=== PATIENT | female | born 1945 | race Caucasian/White ===

== ENCOUNTER 2019-06-05 15:12 | Emergency (ER) | payer MEDICARE ==
[~2019-06-05] VITALS: Ht 152.4 cm; Wt 81.8 kg
[2019-06-05 15:50] VITALS: Ht 152.4 cm; Wt 81.8 kg
[2019-06-05] MEDS ORDERED: GLUCOPHAGE500 MG PO (15:54)
[2019-06-05] MEDS ORDERED: TOPROL XL50 MG PO (15:54)
[2019-06-05] MEDS ORDERED: VERAPAMIL ER P200 MG PO (15:54)
[2019-06-05] MEDS ORDERED: LIPITOR20 MG PO (15:55)
[2019-06-05] MEDS ORDERED: DIOVAN320 MG PO (15:55)
[2019-06-05] MEDS ORDERED: DEBROX OTIC15 ML EACH EAR (17:21)
[2019-06-05 18:00] VITALS: BP 168/70
== END 2019-06-05 18:00 | disposition home or self-care (01) ==
LOC: D.ER 15:12
DX: H61.21 Impacted cerumen, right ear (principal); I10 Essential (primary) hypertension